=== PATIENT | female | born 2005 | race Caucasian/White ===

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

== ENCOUNTER 2024-01-27 01:41 | Emergency (ER) | payer OTHER ==
[~2024-01-27] VITALS: Ht 165.1 cm; Wt 89.2 kg
[~2024-01-27 01:41] MED LIST changes: +MACROBID 100 M100 MG PO; +PANTOPRAZOLE SO40 MG PO
[2024-01-27] MEDS ORDERED: AMOX TR-K CLV1 EAC1 PO (01:58)
[2024-01-27] MEDS ORDERED: TESTOSTERO200 MG/1 M IM (01:58)
[2024-01-27] MEDS ORDERED: OFLOXACIN5 ML OTIC (01:59)
[2024-01-27] MEDS ORDERED: CIPROFLOXACIN HCL/DEXAMETH 7.5 ML HOME.PACK OTIC ONE (02:15)
[2024-01-27 02:22] VITALS: BP 153/99
== END 2024-01-27 02:22 | disposition home or self-care (01) ==
LOC: ED 01:41
DX: H60.91 Unspecified otitis externa, right ear (principal); K21.9 Gastro-esophageal reflux disease without esophagitis; Z79.899 Other long term (current) drug therapy
CPT/HCPCS: 99282